=== PATIENT | male | born 1985 | race Caucasian/White ===

== ENCOUNTER 2017-10-10 08:48 | Emergency (ER) | payer SELFPAY ==
[~2017-10-10] VITALS: Ht 185.4 cm; Wt 96.4 kg
[2017-10-10 08:51] VITALS: BP 126/86; TEMP 97.4
[2017-10-10] MEDS ORDERED: PROAIR HFA0.09 MG/AC IH (09:00)
[2017-10-10] MEDS ORDERED: ZESTRIL 10MG10 MG PO (09:01)
[2017-10-10] MEDS ORDERED: PREDNISONE20 MG PO (10:13)
[2017-10-10 10:35] VITALS: PULSE 110
== END 2017-10-10 10:35 | disposition home or self-care (01) ==
LOC: COL.ER 08:48
DX: J45.901 Unspecified asthma with (acute) exacerbation (principal); Z98.890 Other specified postprocedural states
CPT/HCPCS: J7512

== ENCOUNTER 2018-01-24 10:03 | Emergency (ER) | payer SELFPAY ==
[~2018-01-24] VITALS: Ht 185.4 cm; Wt 91.5 kg
[~2018-01-24 10:03] MED LIST: PREDNISONE20 MG PO; PROAIR HFA0.09 MG/AC IH; ZESTRIL 10MG10 MG PO
[2018-01-24 10:11] VITALS: BP 133/93; TEMP 98
[2018-01-24] MEDS ORDERED: PREDNISONE20 MG PO (11:35)
[2018-01-24 11:50] VITALS: PULSE 85
== END 2018-01-24 11:50 | disposition home or self-care (01) ==
LOC: COL.ER 10:03
DX: J45.901 Unspecified asthma with (acute) exacerbation (principal); I10 Essential (primary) hypertension; F17.210 Nicotine dependence, cigarettes, uncomplicated
CPT/HCPCS: J7512

== ENCOUNTER 2018-06-10 17:27 | Emergency (ER) | payer SELFPAY ==
[~2018-06-10] VITALS: Ht 182.9 cm; Wt 94.5 kg
[2018-06-10 17:31] VITALS: BP 149/90; TEMP 98.8
[2018-06-10] MEDS ORDERED: PREDNISONE20 MG PO (18:58)
[2018-06-10 19:10] VITALS: PULSE 92
== END 2018-06-10 19:12 | disposition home or self-care (01) ==
LOC: COL.ER 17:27
DX: J06.9 Acute upper respiratory infection, unspecified (principal); J45.909 Unspecified asthma, uncomplicated; F17.210 Nicotine dependence, cigarettes, uncomplicated
CPT/HCPCS: J7512